=== PATIENT | female | born 1990 | race Caucasian/White ===

== ENCOUNTER 2020-08-24 13:20 | Inpatient (IN) | payer OTHER ==
[2020-08-24 14:26] VITALS: BMI 36.8
[2020-08-24] MEDS ORDERED: ONDANSETRON 4 MG/2 ML VIAL ONE ×2 (14:53→15:01)
[2020-08-24] MEDS ORDERED: KETOROLAC TROMETHAMINE 30 MG/1 ML VIAL ONE (14:53)
[2020-08-24] MEDS ORDERED: OXYTOCIN 10 UNITS/ML VIAL ONE (14:53)
[2020-08-24] MEDS ORDERED: PROPOFOL 20 ML ONE (14:55)
[2020-08-24] MEDS ORDERED: ePHEDrine SULFATE 50 MG/1 ML AMPULE ONE (14:57)
[2020-08-24] MEDS ORDERED: ceFAZolin SODIUM 1 GM VIAL ONE (15:01)
[2020-08-24] MEDS ORDERED: CITRIC ACID/SODIUM CITRATE 30 ML UNIT-DOSE CUP PO ONE (15:01)
[2020-08-24] MEDS ORDERED: LIGASURE IMPACT TP ONE (15:12)
[2020-08-24] MEDS ORDERED: ELECTROLYTE-148 SOLN 1,000 ML IV SCH ×2 (15:15)
[2020-08-24] MEDS ORDERED: METHYLERGONOVINE MALEATE 0.2 MG/1 ML AMP IM PRN (15:33)
[2020-08-24] MEDS ORDERED: OXYTOCIN 20 UNITS in 0.9% NS 20 UNIT/1,000 ML INFUS.BAG IV SCH (15:45)
[2020-08-24] MEDS ORDERED: ONDANSETRON 4 MG/2 ML VIAL IVPUSH PRN (17:20)
[2020-08-24] MEDS ORDERED: OXYTOCIN 20 UNITS in 0.9% NS 20 UNIT/1,000 ML INFUS.BAG IV ONE (18:31)
[2020-08-25 07:54] LABS: BASO % 0.3 % (0-2.0); EOS % 2.2 % (0-4.5); HEMOGLOBIN 8.4 GM/dL (10.7-15.3); MCHC 33.6 g/dl (32.0-36.0); MEAN CELL VOLUME 92.5 fl (80-96); MEAN PLT VOLUME 10.1 fl (7.5-11.1); NEUT % 80.5 % (42.8-82.8); PLATELET COUNT 168 K/MM3 (134-434); WHITE BLOOD COUNT 10.6 K/mm3 (4.0-10.0)
[2020-08-25] MEDS: SIMETHICONE 80 MG TAB.CHEW (FP) PO PRN ×2 (14:12→20:43)
[2020-08-25] MEDS ORDERED: BISACODYL 10 MG SUPP.RECT RC PRN (15:33)
[2020-08-25] MEDS: ACETAMINOPHEN 500 MG TABLET (FP) PO PRN (20:43)
[2020-08-26] MEDS: ACETAMINOPHEN 500 MG TABLET (FP) PO PRN (06:41)
[2020-08-26] MEDS: SIMETHICONE 80 MG TAB.CHEW (FP) PO PRN ×4 (06:42→23:22)
[2020-08-26 08:16] LABS: BASO % 0.4 % (0-2.0); EOS % 3.3 % (0-4.5); HEMATOCRIT 25.3 % (32.4-45.2); HEMOGLOBIN 8.5 GM/dL (10.7-15.3); LYMPH % 11.8 % (8-40); MCH 31.3 pg (25.7-33.7); MCHC 33.6 g/dl (32.0-36.0); MEAN PLT VOLUME 9.7 fl (7.5-11.1); NEUT % 78.5 % (42.8-82.8); PLATELET COUNT 200 K/MM3 (134-434); RBC 2.71 M/mm3 (3.60-5.2); RDW 13.7 % (11.6-15.6); WHITE BLOOD COUNT 12.2 K/mm3 (4.0-10.0)
[2020-08-26] MEDS: IBUPROFEN 600 MG TABLET (FP) PO PRN ×3 (11:19→23:22)
[2020-08-27] MEDS: SIMETHICONE 80 MG TAB.CHEW (FP) PO PRN (08:16)
[2020-08-27] MEDS: IBUPROFEN 600 MG TABLET (FP) PO PRN (08:16)
[2020-08-27 08:57] LABS: BASO % 0.2 % (0-2.0); EOS % 3.4 % (0-4.5); HEMATOCRIT 24.2 % (32.4-45.2); HEMOGLOBIN 8.2 GM/dL (10.7-15.3); LYMPH % 18.7 % (8-40); MCH 31.6 pg (25.7-33.7); MCHC 33.8 g/dl (32.0-36.0); MEAN CELL VOLUME 93.6 fl (80-96); MONO % 5.5 % (3.8-10.2); NEUT % 72.2 % (42.8-82.8); PLATELET COUNT 199 K/MM3 (134-434); RBC 2.58 M/mm3 (3.60-5.2); WHITE BLOOD COUNT 8.9 K/mm3 (4.0-10.0)
[2020-08-27 10:09] VITALS: BP 118/82; PULSE 76; TEMP 98.5
== END 2020-08-27 12:35 | disposition home or self-care (01) | DRG 540 ==
LOC: JLDR 13:20 → J3W 20:45
PROVIDERS: ADMIT Student in an Organized Health Care Education/Training Program; ATTEND Student in an Organized Health Care Education/Training Program
PROC: 10D00Z1 Extraction of Products of Conception, Low, Open Approach (ICD-10-PCS; principal; 2020-08-24)
PROC: 0UT70ZZ Resection of Bilateral Fallopian Tubes, Open Approach (ICD-10-PCS; 2020-08-24)
DX: O34.211 Maternal care for low transverse scar from previous cesarean delivery (principal); Z3A.39 39 weeks gestation of pregnancy; Z37.0 Single live birth; Z30.2 Encounter for sterilization
CPT/HCPCS: 36415; 85025; 88302-TC; 88307-TC